=== PATIENT | female | born 2000 | race African-American/Black ===

== ENCOUNTER 2022-04-03 21:41 | Emergency (ER) | payer OTHER ==
[~2022-04-03] VITALS: Ht 152.4 cm; Wt 63.6 kg
[2022-04-04 00:29] LABS: COLLECTION METHOD CLEAN CATCH
[2022-04-04 00:44] LABS: PH 5.5 (5.0-8.5); URINE APPEARANCE Clear (CLEAR/HAZY); URINE BLOOD 2+ (NEGATIVE); URINE COLOR Straw (YELLOW); URINE GLUCOSE Negative (NEGATIVE); URINE KETONE Negative (NEGATIVE); URINE NITRATE Positive (NEGATIVE); URINE PROTEIN(semi-quant) Negative (NEGATIVE); URINE UROBILINOGEN 0.2 E.U/dL (0.2-1.0)
[2022-04-04 00:49] LABS: MUCOUS Present (NOT PRESENT); URINE BACTERIA Rare /hpf (NONE SEEN)
[2022-04-04] MEDS ORDERED: MACROBID 1100 MG/CAP PO (01:22)
[2022-04-04 01:45] VITALS: BP 120/83; PULSE 81; TEMP 97.5
== END 2022-04-04 01:45 | disposition home or self-care (01) ==
LOC: COL.ER 21:41
PROVIDERS: Nurse Practitioner Primary Care
DX: N39.0 Urinary tract infection, site not specified (principal)